=== PATIENT | male | born 1955 | race Caucasian/White ===

== ENCOUNTER 2017-06-01 08:07 | Emergency (ER) | payer OTHER ==
[2017-06-01 08:20] VITALS: BP 171/96
[2017-06-01] MEDS ORDERED: XYLOCAINE 1% 20 mL INFILTRATI ONE (08:44)
[2017-06-01] MEDS ORDERED: MARCAINE 0.5% INFILTRATI ONE (08:46)
[2017-06-01] MEDS ORDERED: NORCO 5/325 PO ONE (08:58)
[2017-06-01] MEDS ORDERED: BOOSTRIX IM ONE (08:58)
[2017-06-01] MEDS ORDERED: ceFAZolin 1 GM in NACL 0.9% 20 ML IV SCH (09:00)
--- NOTE | 2017-06-01 09:44 | XRay Report ---
Right thumb: Trauma, laceration. There has been removal of a portion of the dorsal and medial soft tissues of the thumb overlying the distal phalanx. 2 small bone fragments are located adjacent to the distal phalanx. No foreign body noted. The joints appear intact. Impression: Laceration of distal digit with soft tissue removal.
--- NOTE | 2017-06-01 10:04 | Emergency Department Report ---
ED General Adult HPI - General Chief complaint: Extremity Injury, Upper Stated complaint: RIGHT HAND LACERATION Time Seen by Provider: 06/01/17 08:55 Source: patient Mode of arrival: Ambulatory Limitations: No Limitations - History of Present Illness Initial comments: 61-year-old male with injury to thumb secondary to table saw. He essentially shaved the radial aspect of the distal phalanx with the saw. He suffered no other injury. He did not have substantial blood loss. Complains of pain affecting the injured thumb. He states he waited a while to come in and plans to go back to work. I advised him of the non-feasibility of that plan. On arrival he had a partial digital nerve block with tetracaine and lidocaine. -: Sudden, hour(s) Consistency: constant Improves with: none Worsens with: none Associated Symptoms: denies other symptoms - Related Data Previous Rx's Medication Instructions Recorded Last Taken Type Cephalexin [Keflex] 500 mg PO Q6HR #20 capsule 06/01/17 Unknown Rx HYDROcodone/APAP 7.5-325 [Modena 1 each PO Q6HR PRN #14 tablet 06/01/17 Unknown Rx 7.5/325] Allergies Allergy/AdvReac Type Severity Reaction Status Date / Time No Known Allergies Allergy Verified 06/01/17 09:10 ED Review of Systems ROS: Stated complaint: RIGHT HAND LACERATION Other details as noted in HPI Comment: All other systems reviewed and negative ED Past Medical Hx - Past Medical History Previous Medical History?: Yes Hx GERD: Yes - Surgical History Past Surgical History?: Yes Additional Surgical History: abd surgery for acid reflux - Social History Smoking Status: Never Smoker Substance Use Type: Alcohol - Medications Home Medications: Home Medications Medication Instructions Recorded Confirmed Last Taken Type Cephalexin [Keflex] 500 mg PO Q6HR #20 capsule 06/01/17 Unknown Rx HYDROcodone/APAP 7.5-325 [Modena 1 each PO Q6HR PRN #14 tablet 06/01/17 Unknown Rx 7.5/325] ED Physical Exam - General Limitations: No Limitations General appearance: alert, in no apparent distress - Head Head exam: Present: atraumatic, normocephalic - Eye Eye exam: Present: normal appearance - ENT ENT exam: Present: mucous membranes moist - Neck Neck exam: Present: normal inspection - Respiratory Respiratory exam: Absent: respiratory distress, accessory muscle use - GI/Abdominal GI/Abdominal exam: Absent: distended - Rectal Rectal exam: Present: deferred - Extremities Exam Extremities exam: Present: other (there is a moderate depth of lotion of the radial aspect of the distal proximal phalanx and distal phalanx of the thumb. I do not see lokesh exposed bone. There is no joint or nailbed involvement.) - Back Exam Back exam: Present: normal inspection - Neurological Exam Neurological exam: Present: alert, oriented X3 - Psychiatric Psychiatric exam: Present: normal affect, normal mood - Skin Skin exam: Present: warm, dry, intact, normal color. Absent: rash ED Course Vital Signs 06/01/17 08:16 Temperature 98.1 F Pulse Rate 78 Respiratory 18 Rate Blood Pressure 171/96 O2 Sat by Pulse 99 Oximetry - Reevaluation(s) Reevaluation #1: A digital nerve block was performed. The thumb was dressed with nonadherent material. The patient was given a tetanus shot and a gram of Ancef. He will be referred to orthopedics. He should change the dressing at least once every 1 -2 days. Return if any further problem or signs of infection as needed. 06/01/17 10:05 ED Medical Decision Making - Radiology Data interpreted by me: Patient appears to have slight shaving of bone on x-ray. No substantial fracture. Critical care attestation.: If time is entered above; I have spent that time in minutes in the direct care of this critically ill patient, excluding procedure time. ED Disposition Clinical Impression: Avulsion of finger Qualifiers: Encounter type: initial encounter Qualified Code(s): S61.209A - Unspecified open wound of unspecified finger without damage to nail, initial encounter Disposition: DC-01 TO HOME OR SELFCARE Is pt being admited?: No Does the pt Need Aspirin: No Condition: Stable Instructions: Laceration (ED), Thumb Fracture (ED) Additional Instructions: Redress dressing every 1-2 days. See orthopedist for further care. Return as needed if signs of infection at any time. Rx antibiotic and medicine for pain. Prescriptions: Cephalexin [Keflex] 500 mg PO Q6HR #20 capsule HYDROcodone/APAP 7.5-325 [Modena 7.5/325] 1 each PO Q6HR PRN #14 tablet PRN Reason: Pain Referrals: PRIMARY CARE, [Primary Care Provider] - 3-5 Days CLAIRE GOULD MD [Staff Physician] - 3-5 Days Time of Disposition: 10:08
== END 2017-06-01 10:22 | disposition home or self-care (01) ==
LOC: ED 08:07
DX: S61.101A Unspecified open wound of right thumb with damage to nail, initial encounter (principal); W45.8XXA Other foreign body or object entering through skin, initial encounter; Y93.89 Activity, other specified; Y92.89 Other specified places as the place of occurrence of the external cause; Y99.8 Other external cause status
CPT/HCPCS: 64450; 73140; 90471; 90715; 96365; 99283; J0690